=== PATIENT | female | born 1945 | race Caucasian/White ===

== ENCOUNTER 2023-10-06 19:23 | Inpatient (IN) | payer MEDICARE, SELFPAY ==
[2023-10-06] VITALS (18 sets, daily range): BP systolic 71–113; BP diastolic 47–72; PULSE 56–118; RESP 6–34; TEMP 35.4–36.7; O2SAT 93
--- NOTE | 2023-10-06 19:40 | PC.NURSE ---
see triage note for detail, scratches noted to the back of both lower extremities, dressing applied per prison, removed upon arrival, no gross drainage note skin pink around wounds below wounds skin is purple in color with decreased cap refill,
--- NOTE | 2023-10-06 19:49 | ED.GENADULT ---
HPI - General Adult <Lilly Jaeger MD - Last Filed: 10/10/23 11:11> General Chief complaint: Wound/Laceration Stated complaint: wounds on legs Time Seen by Provider: 10/06/23 19:26 History of Present Illness HPI narrative: 78-year-old woman brought to the emergency department from [facility] with altered mental status and concern for lower extremity cellulitis. Discharge summary from [facility] with hospitalization September 14 through September 27 is available and reviewed. 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 Patient apparently had been doing well with continued improvement for a couple of days and over the last 2-3 days has reportedly been declining. On arrival in the emergency department patient is not oriented to person time and place. She is moaning in pain but not able to tell us where she is hurting. Patient was treated with antibiotics in the hospital, completed a 5 day course of doxycycline post discharge and is no longer on antibiotics. Related Data Home Medications Medication Instructions Recorded Confirmed Multivitamin Women 50 Plus 1 tab DAILY 10/06/23 10/06/23 Ocuvite Adult 50 Plus 1 tab DAILY 10/06/23 10/06/23 ascorbic acid (vitamin C) 1,000 mg DAILY 10/06/23 10/06/23 cetirizine 10 mg DAILY 10/06/23 10/06/23 magnesium oxide 400 mg DAILY 10/06/23 10/06/23 melatonin 10 mg BEDTIME 10/06/23 10/06/23 metoprolol succinate 25 mg mg PO DAILY 10/06/23 tablet,extended release 24 hr rivaroxaban 15 mg BEDTIME 10/06/23 10/06/23 thiamine mononitrate (vit B1) 100 mg DAILY 10/06/23 10/06/23 valacyclovir 500 mg tablet 500 mg PO BID 10/06/23 10/06/23 Allergies Allergy/AdvReac Type Severity Reaction Status Date / Time No Known Drug Allergies Allergy Verified 10/06/23 20:20 Review of Systems <Lilly Jaeger MD - Last Filed: 10/10/23 11:11> Review of Systems ROS Unobtainable: Unobtainable due to mental status/LOC Patient History <Lilly Jaeger MD - Last Filed: 10/10/23 11:11> Medical History History of alcohol use disorder Atrial fibrillation Congestive heart failure Social History household members: spouse Smoking Status: Never smoker Exam <Lilly Jaeger MD - Last Filed: 10/10/23 11:11> Initial Vital Signs Initial Vital Signs: Vital Signs Pulse Rate 56 L 10/06/23 19:26 General: Chronically ill-appearing with acute exacerbation, not oriented to person time and place, cachectic, dehydrated HEENT: Dry mucous membranes, normal sclera with reactive pupils, tongue with aphthous ulcers Neck: No JVD, no cervical adenopathy Respiratory: Lungs with mild rhonchi mid axillary lines bilaterally, no significant wheezing, she is moving air through all lung mak Cardiac: Tachycardic, irregular, 3/6 systolic murmur Abdomen: Soft, no pain behaviors with palpation, Skin: Very thin, multiple bruises in various stages of healing Neurologic: She is able to move all extremities but is not oriented to person time and place Extremities: Feet and fingers are extremely poorly perfused. Feet are purple with no palpable pulses. Nail beds of the fingertips are purple and unable to get saturations from fingertips. She is mild edema, the lower extremity wounds are appropriately dressed, very shallow with no evidence of worsening cellulitis or significant discharge Psych: Completely unoriented <Judit Ramesh DO - Last Filed: 10/07/23 11:28> Initial Vital Signs Initial Vital Signs: Vital Signs Pulse Rate 56 L 10/06/23 19:26 Procedures <Lilly Jaeger MD - Last Filed: 10/10/23 11:11> Central Line Placement Right IJ: Time of procedure: 00:46 Patient Placed on Monitor/Pulse Ox: Yes MD Prep: gown and gloves Central Line Prep: Chlorhexidine scrub Local Anesthetic: lidocaine 1% Amount of anesthesia used (mL): 3 Ultrasound Used for Placement: Yes Central Line Lumen Inserted: triple Post Procedure: sutured in place, good blood return, all ports aspirated, flushed, capped, sterile dressing applied and line stabilization device Post Procedure X-Ray: tip of catheter in good position and no pneumothorax seen Patient Tolerated Procedure: Well Complications: none Course <Lilly Jaeger MD - Last Filed: 10/10/23 11:11> Orders Ordered: Discontinued Medications Acetaminophen (Acetaminophen 325 Mg Tablet) 650 mg PO Q6H PRN PRN Reason: Fever/Mild Pain (1-3) Haloperidol (Haloperidol 5 Mg/Ml Vial) 2 mg IV Q1HR PRN PRN Reason: Agitation Hydromorphone HCl (Hydromorphone 0.5 Mg Inj) 0.5 mg IV Q15MIN PRN PRN Reason: Pain, Last Admin: 10/07/23 00:01 Dose: 0.5 mg Documented By: Admin: 10/06/23 20:41 Dose: 0.5 mg Documented By: JACQUELINE Hydromorphone HCl (Hydromorphone 0.5 Mg Inj) 0.5 mg IV Q2H PRN PRN Reason: Pain, Severe (7-10) Sodium Chloride (Normal Saline 0.9%) 1,000 mls @ 1,000 mls/hr IV BOLUS ONE Stop: 10/06/23 20:59 Last Infusion: 10/06/23 22:10 Dose: Infused Documented By: Admin: 10/06/23 20:41 Dose: 1,000 mls/hr Documented By: JACQUELINE Cefepime HCl 2 gm/ Sodium (Chloride) 100 mls @ 200 mls/hr IV NOW ONE Stop: 10/06/23 21:49 Last Infusion: 10/06/23 22:58 Dose: Infused Documented By: Admin: 10/06/23 22:09 Dose: 200 mls/hr Documented By: JACQUELINE Sodium Chloride (Normal Saline 0.9%) 1,000 mls @ 150 mls/hr IV CONT IRCKI Last Infusion: 10/07/23 01:34 Dose: Infused Documented By: Admin: 10/06/23 23:27 Dose: 150 mls/hr Documented By: JACQUELINE Sodium Chloride (Normal Saline 0.9%) 1,000 mls @ 1,000 mls/hr IV BOLUS ONE Stop: 10/06/23 22:47 Last Infusion: 10/06/23 23:27 Dose: Infused Documented By: Admin: 10/06/23 22:10 Dose: 1,000 mls/hr Documented By: JACQUELINE Vancomycin HCl (Vancomycin) 1,000 mg in 200 mls @ 200 mls/hr IV NOW ONE Stop: 10/06/23 22:59 Last Infusion: 10/07/23 00:15 Dose: Infused Documented By: Admin: 10/06/23 22:55 Dose: 200 mls/hr Documented By: JACQUELINE Acetaminophen (Ofirmev) 1,000 mg in 100 mls @ 400 mls/hr IV NOW ONE Stop: 10/06/23 23:21 Last Infusion: 10/06/23 23:57 Dose: Infused Documented By: Admin: 10/06/23 23:30 Dose: 400 mls/hr Documented By: JACQUELINE NOREPINEPHRINE BITARTRATE/D5W (Levophed) 4 mg in 250 mls @ 20.412 mls/hr IV TITRATE [facility]; Protocol Last Titration: 10/07/23 01:33 Dose: Infused Documented By: Titration: 10/07/23 00:17 Dose: 0.2 mcg/kg/min, 40.823 mls/hr Documented By: Admin: 10/06/23 23:42 Dose: 0.1 mcg/kg/min, 20.412 mls/hr Documented By: JACQUELINE Lorazepam (Lorazepam 2 Mg/Ml Inj) 1 mg IV Q1HR PRN PRN Reason: Agitation/Anxiety Last Admin: 10/07/23 13:38 Dose: 1 mg Documented By: SVETA Morphine Sulfate (Morphine 2 Mg/Ml Inj) 1 mg IV Q2HR PRN PRN Reason: Pain, Moderate (4-6) Last Admin: 10/07/23 08:11 Dose: 1 mg Documented By: MPO Morphine Sulfate (Morphine 2 Mg/Ml Inj) 2 mg IV Q30MIN PRN PRN Reason: Pain/Dyspnea Morphine Sulfate (Morphine 10 Mg/0.5 Ml Oral Syringe) 10 mg SL Q1H PRN PRN Reason: Pain, Mild (1-3) Last Admin: 10/07/23 11:56 Dose: 10 mg Documented By: BT Naloxone HCl (Naloxone 0.4 Mg/Ml Vial) 0.2 mg IV Q2MIN PRN PRN Reason: Opiate Reversal Ondansetron HCl (Ondansetron 4 Mg/2 Ml Inj) 4 mg IV Q4HR PRN PRN Reason: Nausea And Vomiting Scopolamine (Scopolamine 1 Patch) 1 patch TOP Q72H PRN PRN Reason: Secretions Last Admin: 10/07/23 11:23 Dose: 1 patch Documented By: DIMITRI Vancomycin HCl (Vancomycin Per Pharmacy) 1 request MISC NOW ONE Stop: 10/06/23 21:49 Last Admin: 10/06/23 22:38 Dose: Not Given Documented By: JACQUELINE Vital Signs Vital signs: Vital Signs - 8 hr 10/07/23 03:30 10/07/23 03:30 10/07/23 03:40 Temperature 98.1 F Pulse Rate 97 H Respiratory Rate 7 L Blood Pressure 72/49 L 74/50 L Oxygen Delivery Method Oxygen Flow Rate 10/07/23 03:40 10/07/23 03:50 10/07/23 03:50 Temperature 97.9 F 97.9 F Pulse Rate 89 92 H Respiratory Rate 7 L 6 L Blood Pressure 70/48 L Oxygen Delivery Method Oxygen Flow Rate 10/07/23 04:00 10/07/23 04:00 10/07/23 04:10 Temperature 97.9 F 97.9 F Pulse Rate 92 H 84 Respiratory Rate 8 L 6 L Blood Pressure 72/52 L Oxygen Delivery Method Oxygen Flow Rate 10/07/23 04:10 10/07/23 04:20 10/07/23 04:20 Temperature 97.9 F Pulse Rate 95 H Respiratory Rate 6 L Blood Pressure 72/50 L 70/39 L Oxygen Delivery Method Oxygen Flow Rate 10/07/23 04:30 10/07/23 04:30 10/07/23 04:40 Temperature 97.7 F Pulse Rate 90 Respiratory Rate 8 L Blood Pressure 73/51 L 71/53 L Oxygen Delivery Method Oxygen Flow Rate 10/07/23 04:40 10/07/23 04:50 10/07/23 04:50 Temperature 97.7 F 97.7 F Pulse Rate 90 91 H Respiratory Rate 7 L 5 L Blood Pressure 66/51 L Oxygen Delivery Method Oxygen Flow Rate 10/07/23 05:00 10/07/23 05:12 10/07/23 05:12 Temperature 97.7 F 97.7 F Pulse Rate 96 H 95 H Respiratory Rate 6 L 7 L Blood Pressure 75/50 L Oxygen Delivery Method High Flow Nasal Cannula Oxygen Flow Rate 45 10/07/23 05:30 10/07/23 05:30 10/07/23 05:55 Temperature 97.5 F L 97.5 F L Pulse Rate 92 H 99 H Respiratory Rate 8 L 5 L Blood Pressure 73/41 L Oxygen Delivery Method Oxygen Flow Rate 10/07/23 05:55 10/07/23 06:00 10/07/23 06:00 Temperature 97.5 F L Pulse Rate 97 H Respiratory Rate 7 L Blood Pressure 71/49 L 69/52 L Oxygen Delivery Method Oxygen Flow Rate <Judit Ramesh DO - Last Filed: 10/07/23 11:28> Orders Ordered: Discontinued Medications Acetaminophen (Acetaminophen 325 Mg Tablet) 650 mg PO Q6H PRN PRN Reason: Fever/Mild Pain (1-3) Haloperidol (Haloperidol 5 Mg/Ml Vial) 2 mg IV Q1HR PRN PRN Reason: Agitation Hydromorphone HCl (Hydromorphone 0.5 Mg Inj) 0.5 mg IV Q15MIN PRN PRN Reason: Pain, Last Admin: 10/07/23 00:01 Dose: 0.5 mg Documented By: Admin: 10/06/23 20:41 Dose: 0.5 mg Documented By: JACQUELINE Hydromorphone HCl (Hydromorphone 0.5 Mg Inj) 0.5 mg IV Q2H PRN PRN Reason: Pain, Severe (7-10) Sodium Chloride (Normal Saline 0.9%) 1,000 mls @ 1,000 mls/hr IV BOLUS ONE Stop: 10/06/23 20:59 Last Infusion: 10/06/23 22:10 Dose: Infused Documented By: Admin: 10/06/23 20:41 Dose: 1,000 mls/hr Documented By: JACQUELINE Cefepime HCl 2 gm/ Sodium (Chloride) 100 mls @ 200 mls/hr IV NOW ONE Stop: 10/06/23 21:49 Last Infusion: 10/06/23 22:58 Dose: Infused Documented By: Admin: 10/06/23 22:09 Dose: 200 mls/hr Documented By: JACQUELINE Sodium Chloride (Normal Saline 0.9%) 1,000 mls @ 150 mls/hr IV CONT RICKI Last Infusion: 10/07/23 01:34 Dose: Infused Documented By: Admin: 10/06/23 23:27 Dose: 150 mls/hr Documented By: JACQUELINE Sodium Chloride (Normal Saline 0.9%) 1,000 mls @ 1,000 mls/hr IV BOLUS ONE Stop: 10/06/23 22:47 Last Infusion: 10/06/23 23:27 Dose: Infused Documented By: Admin: 10/06/23 22:10 Dose: 1,000 mls/hr Documented By: JACQUELINE Vancomycin HCl (Vancomycin) 1,000 mg in 200 mls @ 200 mls/hr IV NOW ONE Stop: 10/06/23 22:59 Last Infusion: 10/07/23 00:15 Dose: Infused Documented By: Admin: 10/06/23 22:55 Dose: 200 mls/hr Documented By: JACQUELINE Acetaminophen (Ofirmev) 1,000 mg in 100 mls @ 400 mls/hr IV NOW ONE Stop: 10/06/23 23:21 Last Infusion: 10/06/23 23:57 Dose: Infused Documented By: Admin: 10/06/23 23:30 Dose: 400 mls/hr Documented By: JACQUELINE NOREPINEPHRINE BITARTRATE/D5W (Levophed) 4 mg in 250 mls @ 20.412 mls/hr IV TITRATE [facility]; Protocol Last Titration: 10/07/23 01:33 Dose: Infused Documented By: Titration: 10/07/23 00:17 Dose: 0.2 mcg/kg/min, 40.823 mls/hr Documented By: Admin: 10/06/23 23:42 Dose: 0.1 mcg/kg/min, 20.412 mls/hr Documented By: JACQUELINE Lorazepam (Lorazepam 2 Mg/Ml Inj) 1 mg IV Q1HR PRN PRN Reason: Agitation/Anxiety Last Admin: 10/07/23 13:38 Dose: 1 mg Documented By: BT Morphine Sulfate (Morphine 2 Mg/Ml Inj) 1 mg IV Q2HR PRN PRN Reason: Pain, Moderate (4-6) Last Admin: 10/07/23 08:11 Dose: 1 mg Documented By: MPO Morphine Sulfate (Morphine 2 Mg/Ml Inj) 2 mg IV Q30MIN PRN PRN Reason: Pain/Dyspnea Morphine Sulfate (Morphine 10 Mg/0.5 Ml Oral Syringe) 10 mg SL Q1H PRN PRN Reason: Pain, Mild (1-3) Last Admin: 10/07/23 11:56 Dose: 10 mg Documented By: SVETA Naloxone HCl (Naloxone 0.4 Mg/Ml Vial) 0.2 mg IV Q2MIN PRN PRN Reason: Opiate Reversal Ondansetron HCl (Ondansetron 4 Mg/2 Ml Inj) 4 mg IV Q4HR PRN PRN Reason: Nausea And Vomiting Scopolamine (Scopolamine 1 Patch) 1 patch TOP Q72H PRN PRN Reason: Secretions Last Admin: 10/07/23 11:23 Dose: 1 patch Documented By: DIMITRI Vancomycin HCl (Vancomycin Per Pharmacy) 1 request MISC NOW ONE Stop: 10/06/23 21:49 Last Admin: 10/06/23 22:38 Dose: Not Given Documented By: JACQUELINE Vital Signs Vital signs: Vital Signs - 8 hr 10/07/23 03:30 10/07/23 03:30 10/07/23 03:40 Temperature 98.1 F Pulse Rate 97 H Respiratory Rate 7 L Blood Pressure 72/49 L 74/50 L Oxygen Delivery Method Oxygen Flow Rate 10/07/23 03:40 10/07/23 03:50 10/07/23 03:50 Temperature 97.9 F 97.9 F Pulse Rate 89 92 H Respiratory Rate 7 L 6 L Blood Pressure 70/48 L Oxygen Delivery Method Oxygen Flow Rate 10/07/23 04:00 10/07/23 04:00 10/07/23 04:10 Temperature 97.9 F 97.9 F Pulse Rate 92 H 84 Respiratory Rate 8 L 6 L Blood Pressure 72/52 L Oxygen Delivery Method Oxygen Flow Rate 10/07/23 04:10 10/07/23 04:20 10/07/23 04:20 Temperature 97.9 F Pulse Rate 95 H Respiratory Rate 6 L Blood Pressure 72/50 L 70/39 L Oxygen Delivery Method Oxygen Flow Rate 10/07/23 04:30 10/07/23 04:30 10/07/23 04:40 Temperature 97.7 F Pulse Rate 90 Respiratory Rate 8 L Blood Pressure 73/51 L 71/53 L Oxygen Delivery Method Oxygen Flow Rate 10/07/23 04:40 10/07/23 04:50 10/07/23 04:50 Temperature 97.7 F 97.7 F Pulse Rate 90 91 H Respiratory Rate 7 L 5 L Blood Pressure 66/51 L Oxygen Delivery Method Oxygen Flow Rate 10/07/23 05:00 10/07/23 05:12 10/07/23 05:12 Temperature 97.7 F 97.7 F Pulse Rate 96 H 95 H Respiratory Rate 6 L 7 L Blood Pressure 75/50 L Oxygen Delivery Method High Flow Nasal Cannula Oxygen Flow Rate 45 10/07/23 05:30 10/07/23 05:30 10/07/23 05:55 Temperature 97.5 F L 97.5 F L Pulse Rate 92 H 99 H Respiratory Rate 8 L 5 L Blood Pressure 73/41 L Oxygen Delivery Method Oxygen Flow Rate 10/07/23 05:55 10/07/23 06:00 10/07/23 06:00 Temperature 97.5 F L Pulse Rate 97 H Respiratory Rate 7 L Blood Pressure 71/49 L 69/52 L Oxygen Delivery Method Oxygen Flow Rate Medical Decision Making <Lilly Jaeger MD - Last Filed: 10/10/23 11:11> Lab Data 10/06/23 20:37 10/06/23 20:37 Labs: Lab Results 10/06/23 10/06/23 10/06/23 Range/Units 20:37 21:00 21:35 WBC 11.1 H (4.5-11.0) X10^3/uL RBC 4.17 (4.0-5.2) X10^6/uL Hgb 14.6 (12.0-16.0) g/dL Hct 45.9 (36-46) % MCV 110.0 H (80-100) fL MCH 35.1 H (26-34) PG MCHC 31.9 (30-36) % RDW 18.7 H (11.6-14.8) % Plt Count 209 (150-400) X10^3/uL Neut % (Auto) 87.4 H (50-75) % Lymph % (Auto) 3.7 L (25-40) % Garrett % (Auto) 8.6 (3-14) % Eos % (Auto) 0.1 L (2-4) % Baso % (Auto) 0.2 (0-2) % Neut # (Auto) 9700 H (7739-2795) /uL Lymph # (Auto) 400 L (8304-9959) /uL Garrett # (Auto) 1000 H (0-900) /uL Eos # (Auto) 0 (0-450) /uL Baso # (Auto) 0 (0-100) /uL RBC Morphology See below Anisocytosis 1+ H Macrocytosis 2+ H Target Cells 1+ H Arie Cells 2+ H Acanthocytes (Spur) 1+ H PT 76.6 H (9.4-12.5) SECONDS INR 6.5 H* (0.9-1.3) APTT 51 H (25.1-36.5) SECONDS ABG Sample Site ABG pH (7.35-7.45) ABG pCO2 (35-45) mmHg ABG pO2 (80-100) mmHg ABG HCO3 (23-27) mmol/L ABG Total CO2 (23-27) mmol/L ABG O2 Saturation (95-100) % ABG Base Excess (-2-3) mmol/L FiO2 Sodium 135 L (137-145) mmol/L Potassium 5.3 H (3.4-5.1) mmol/L Chloride 103 (98-107) mmol/L Carbon Dioxide 14 L (22-32) mmol/L BUN 100 H (7-17) mg/dL Creatinine 2.50 H (0.52-1.04) mg/dL Estimated GFR 19 L (>60) mL/min BUN/Creatinine Ratio 40.0 H (6-22) Glucose 122 H (80-110) mg/dL Lactate 2.0 (0.7-2.1) mmol/L Calcium 9.1 (8.4-10.2) mg/dL Magnesium 2.8 H (1.6-2.3) mg/dL Total Bilirubin 3.8 H (0.2-1.3) mg/dL AST 105 H (14-36) IU/L ALT 90 H (<35) IU/L Alkaline Phosphatase 231 H (38-126) U/L Ammonia 11 (9-30) umol/L Troponin I 0.029 (0.01-0.034) ng/mL NT-Pro-B Natriuret Pep 01677 H (<450) pg/mL Total Protein 7.2 (6.3-8.2) g/dL Albumin 3.6 (3.5-5.0) g/dL Globulin 3.6 (1.7-4.1) g/dL Albumin/Globulin Ratio 1.0 (1.0-2.8) Lipase 384 H (23-300) U/L Procalcitonin 1.42 H (<0.5) ng/mL TSH 3.63 (0.47-4.68) uIU/mL Urine Color Yellow Urine Appearance Clear Urine pH 5.5 (4.5-8.0) Ur Specific Slaughters 1.025 (1.000-1.035) Urine Protein 2+ H (Negative) Urine Glucose (UA) Negative (Negative) g/dL Urine Ketones Negative (NEGATIVE) Urine Occult Blood Negative (Negative) Urine Nitrate Negative (Negative) Urine Bilirubin 1+ H (NEGATIVE) Ur Bilirubin Confirm Negative (Negative) Urine Urobilinogen 0.2 (0.2) E.U./dL Ur Leukocyte Esterase Negative (NEGATIVE) Urine RBC None seen (0-5/HPF) Urine WBC None seen (0-5/HPF) Ur Squamous Epith Cells 1-5 /hpf (0-5/HPF) Amorphous Sediment 1+ Urine Bacteria None seen (None) Urine Mucus 1+ H (Negative) Ur Culture Indicated? Cult not indicated Vol Urine Centrifuged 10ml (spun) Blood Type A Positive Antibody Screen Negative 10/06/23 10/06/23 Range/Units 22:17 23:40 WBC (4.5-11.0) X10^3/uL RBC (4.0-5.2) X10^6/uL Hgb (12.0-16.0) g/dL Hct (36-46) % MCV (80-100) fL MCH (26-34) PG MCHC (30-36) % RDW (11.6-14.8) % Plt Count (150-400) X10^3/uL Neut % (Auto) (50-75) % Lymph % (Auto) (25-40) % Garrett % (Auto) (3-14) % Eos % (Auto) (2-4) % Baso % (Auto) (0-2) % Neut # (Auto) (6688-5268) /uL Lymph # (Auto) (9299-8657) /uL Garrett # (Auto) (0-900) /uL Eos # (Auto) (0-450) /uL Baso # (Auto) (0-100) /uL RBC Morphology Anisocytosis Macrocytosis Target Cells [place] Cells Acanthocytes (Spur) PT (9.4-12.5) SECONDS INR (0.9-1.3) APTT (25.1-36.5) SECONDS ABG Sample Site Left radial ABG pH 7.32 L (7.35-7.45) ABG pCO2 35.1 (35-45) mmHg ABG pO2 79 L (80-100) mmHg ABG HCO3 18 L (23-27) mmol/L ABG Total CO2 19 L (23-27) mmol/L ABG O2 Saturation 95 (95-100) % ABG Base Excess -8.0 L (-2-3) mmol/L FiO2 20 Sodium (137-145) mmol/L Potassium (3.4-5.1) mmol/L Chloride (98-107) mmol/L Carbon Dioxide (22-32) mmol/L BUN (7-17) mg/dL Creatinine (0.52-1.04) mg/dL Estimated GFR (>60) mL/min BUN/Creatinine Ratio (6-22) Glucose (80-110) mg/dL Lactate 2.9 H (0.7-2.1) mmol/L Calcium (8.4-10.2) mg/dL Magnesium (1.6-2.3) mg/dL Total Bilirubin (0.2-1.3) mg/dL AST (14-36) IU/L ALT (<35) IU/L Alkaline Phosphatase (38-126) U/L Ammonia (9-30) umol/L Troponin I (0.01-0.034) ng/mL NT-Pro-B Natriuret Pep (<450) pg/mL Total Protein (6.3-8.2) g/dL Albumin (3.5-5.0) g/dL Globulin (1.7-4.1) g/dL Albumin/Globulin Ratio (1.0-2.8) Lipase (23-300) U/L Procalcitonin (<0.5) ng/mL TSH (0.47-4.68) uIU/mL Urine Color Urine Appearance Urine pH (4.5-8.0) Ur Specific Slaughters (1.000-1.035) Urine Protein (Negative) Urine Glucose (UA) (Negative) g/dL Urine Ketones (NEGATIVE) Urine Occult Blood (Negative) Urine Nitrate (Negative) Urine Bilirubin (NEGATIVE) Ur Bilirubin Confirm (Negative) Urine Urobilinogen (0.2) E.U./dL Ur Leukocyte Esterase (NEGATIVE) Urine RBC (0-5/HPF) Urine WBC (0-5/HPF) Ur Squamous Epith Cells (0-5/HPF) Amorphous Sediment Urine Bacteria (None) Urine Mucus (Negative) Ur Culture Indicated? Vol Urine Centrifuged Blood Type Antibody Screen MDM Narrative Medical decision making narrative: CC: Altered mental status, concern for recurrent infection Complicating co-morbidities: Recent extensive hospitalization with ICU stay, please see HPI for summary Data collected from: Discharge summary from [facility] Medical records reviewed: Discharge summary from [facility] reviewed, summarized in HPI. MAR from [facility] reviewed POLST form indicates DNR with limited intervention Differential considered: Sepsis, acute coronary syndrome, stroke, kidney failure, Exam documented above, pertinent findings include: Patient appears acutely ill, exceptionally poorly perfused to the point I am concerned about vascular occlusion to the lower extremities, minor rhonchi, atrial fibrillation with heart murmur appreciated, abdomen is not tender and does not elicit pain behaviors, very superficial wounds to the lower extremities do not appear to be infected and no evidence of cellulitis in the lower extremities Lab Test results independently reviewed as above. Pertinent findings: CBC shows mild leukocytosis with white count of 11.1. Left shift at 87.4%. No evidence of anemia at 14.6 and 45.9 platelet count is Patient is currently on Xarelto. Significantly elevated PT at 76.6 which is the equivalent of an INR at 6.5, PTT is 51 ABG shows a pH of 7 point 316, CO2 of 35.1, O2 of 79 which is 95% saturated on room air, bicarb is 17.9 Chemistries have significant abnormalities. Mild hyperkalemia at 5.3 Creatinine is elevated at 2.5, was 1.8 at time of discharge Slightly elevated magnesium Elevated AST at 105, discharge was 57 ALT 90 and at discharge had been 57 and alk-phos elevated at 231 and at discharge had been 242 Bilirubin elevated at 3.8 and at discharge had been 3.3 Initial lactic acid is 2.0. Once she has warmed, better perfusion with blood circulating actually to toes lactic acid is increasing to 2.9 Independently reviewed EKG: Atrial fibrillation at a rate of 97 without acute ischemic changes Imaging studies independently reviewed: Chest x-ray shows cardiomegaly, small left pleural effusion with left pulmonary opacities concerning for infection Duplex studies of the lower extremities do show blood flow to the extremities with moderate atherosclerotic plaque throughout with decreased vessel caliber Head CT does not show any intracranial pathology or acute bleeding Consultations: 1:30 Care is reviewed with the hospitalist, Dr. Arndt. Given her significant decline, essentially agonal breathing, poor perfusion at this point I think is imminent. Together we decided to have her remain in the emergency department rather than transfer her to the intensive care unit. Presumed that she will within the next minutes to hours and we will make sure that she is not hurting and dies with dignity. Treatments: Central line placement for access, blood samples and anticipation of needing vasopressors Fluids, cefepime and vancomycin with concerns for sepsis and possible pneumonia, Temperature sensing Licea catheter is in place with minimal urine output Kimberli Hugger placed with significant improvement to peripheral perfusion and associated increase in lactic acid Re-evaluations: 1:00 a.m. Patient continues to groan in pain that is not localizing. Respiratory rate currently a with sats in the mid 90s on room air, norepinephrine is at 0.2 milligrams/kilos per minute with maps at 66. She remains significantly altered 110am patient is clearly declining. Respiratory status is declining, she is so poorly perfused we are unable to get effective saturations. Perfusion centrally is now significantly affected as well as lower extremities which had initially warmed up, now, again, cool and poorly perfused. We will try high-flow oxygen as she is not alert enough to tolerate BiPAP. Again POLST form is reviewed and indicates DNR and DNI with limited measures. I believe we are the limits of the limited measures. 0110 phone call to the ?person to notify?, Mandy sanchez. Message is left concerning severity of illness and concern for imminent demise 330am RR is less than 5/min and essentially agonal. Pt appears comfortable 545am High flow oxygen is discontinued. There is no evidence of air hunger or discomfort. Continued agonal and ineffective breathing 550 Found additional contact information and was able to speak with her . Wayne Navcielomakayla [phone] [place] on [place] He is aware that she may prior to his arrival. Care is reviewed with him and questions are answered. Discussion: 78-year-old woman with altered mental status presumed pneumonia causing sepsis with septic shock with multiple organ system failure similar to presentation that led to extended hospitalization at [facility] on September 15. She is not oriented to person time and place, seems to be moaning in pain with no localized symptoms. She is clinically intravascularly dehydrated but also showing signs of congestive heart failure with lower extremity edema and elevated BNP. Broad-spectrum antibiotics have been initiated, she is currently on Levophed respiratory status as well as respiratory rate is declining. Will need ICU admission. There is no evidence of stroke, intracranial hemorrhage, severe blood loss with notably elevated PT and PTT likely a combination of liver failure and her Xarelto. Severe Sepsis Criteria [x ] bacterial source of infection suspected and documented [ ] 2 SIRS Criteria met [ x ] HR >90 [ ] RR >20 [ ] fever or hypothermia [ ] leukocytosis/leukopenia/bandemia [ ] Evidence of at least 1 organ system dysfunction [ x ] Lactate > 2 on repeat at 23:40 [ x ] BP < 90 or MAP <65, >40mm decrease from normal baseline [x ] Creat > 2.0 [ x ] T. Bili > 2.0 [ ] platelet count < 100k [ x ] altered mental status [ ] mechanical ventilation [ x ] provider documentation of severe sepsis Severe Sepsis Determination. the patient has been screened and [ x] DOES meet criteria for severe sepsis [ ] DOES NOT meet criteria for severe sepsis Goal directed treatment Within 3 hours [ x ] blood cx drawn prior to abx [ x ] broad spectrum abx started [x ] lactic acid level checked [ ] lactic redrawn within 6 hours if >2.0 Septic Shock Criteria [ ] lactic > 4 at any time [ x ] SBP ,90 or MAP , 65 [ x ] documentation of septic shock Time Septic Shock diagnosed: [ 23:42 ] Septic Shock Determination. the patient has been screened and [ x ] DOES meet criteria for septic shock [ ] DOES NOT meet criteria for septic shock Goal directed therapy within 3 hours of septic shock or initial hypotension [ x] 30ml/kg fluid [ x ] ABW used [ ] IBW (33.6) used due to BMI > 30 [ ] patient or advocate declining fluid administration after shared decision making conversation Clinical reason for NOT initiating fluid bolus: Within 6 hours (if continued hypotension after fluids or initial lactate >4) [ ] repeat volume status and tissue perfusion assessment documented after fluid bolus was completed at [Date/Time] Must include vital signs, cardiopulmonary exam, capillary refill, peripheral pulse evaluation, skin exam [x ] Initiate vasopressor therapy if persistent hypotension after adequate fluid bolus <Judit Ramesh, DO - Last Filed: 10/07/23 11:28> Lab Data Labs: Lab Results 10/06/23 10/06/23 10/06/23 Range/Units 20:37 21:00 21:35 WBC 11.1 H (4.5-11.0) X10^3/uL RBC 4.17 (4.0-5.2) X10^6/uL Hgb 14.6 (12.0-16.0) g/dL Hct 45.9 (36-46) % MCV 110.0 H (80-100) fL MCH 35.1 H (26-34) PG MCHC 31.9 (30-36) % RDW 18.7 H (11.6-14.8) % Plt Count 209 (150-400) X10^3/uL Neut % (Auto) 87.4 H (50-75) % Lymph % (Auto) 3.7 L (25-40) % Garrett % (Auto) 8.6 (3-14) % Eos % (Auto) 0.1 L (2-4) % Baso % (Auto) 0.2 (0-2) % Neut # (Auto) 9700 H (1164-9955) /uL Lymph # (Auto) 400 L (8136-9632) /uL Garrett # (Auto) 1000 H (0-900) /uL Eos # (Auto) 0 (0-450) /uL Baso # (Auto) 0 (0-100) /uL RBC Morphology See below Anisocytosis 1+ H Macrocytosis 2+ H Target Cells 1+ H Arie Cells 2+ H Acanthocytes (Spur) 1+ H PT 76.6 H (9.4-12.5) SECONDS INR 6.5 H* (0.9-1.3) APTT 51 H (25.1-36.5) SECONDS ABG Sample Site ABG pH (7.35-7.45) ABG pCO2 (35-45) mmHg ABG pO2 (80-100) mmHg ABG HCO3 (23-27) mmol/L ABG Total CO2 (23-27) mmol/L ABG O2 Saturation (95-100) % ABG Base Excess (-2-3) mmol/L FiO2 Sodium 135 L (137-145) mmol/L Potassium 5.3 H (3.4-5.1) mmol/L Chloride 103 (98-107) mmol/L Carbon Dioxide 14 L (22-32) mmol/L BUN 100 H (7-17) mg/dL Creatinine 2.50 H (0.52-1.04) mg/dL Estimated GFR 19 L (>60) mL/min BUN/Creatinine Ratio 40.0 H (6-22) Glucose 122 H (80-110) mg/dL Lactate 2.0 (0.7-2.1) mmol/L Calcium 9.1 (8.4-10.2) mg/dL Magnesium 2.8 H (1.6-2.3) mg/dL Total Bilirubin 3.8 H (0.2-1.3) mg/dL AST 105 H (14-36) IU/L ALT 90 H (<35) IU/L Alkaline Phosphatase 231 H (38-126) U/L Ammonia 11 (9-30) umol/L Troponin I 0.029 (0.01-0.034) ng/mL NT-Pro-B Natriuret Pep 93053 H (<450) pg/mL Total Protein 7.2 (6.3-8.2) g/dL Albumin 3.6 (3.5-5.0) g/dL Globulin 3.6 (1.7-4.1) g/dL Albumin/Globulin Ratio 1.0 (1.0-2.8) Lipase 384 H (23-300) U/L Procalcitonin 1.42 H (<0.5) ng/mL TSH 3.63 (0.47-4.68) uIU/mL Urine Color Yellow Urine Appearance Clear Urine pH 5.5 (4.5-8.0) Ur Specific Slaughters 1.025 (1.000-1.035) Urine Protein 2+ H (Negative) Urine Glucose (UA) Negative (Negative) g/dL Urine Ketones Negative (NEGATIVE) Urine Occult Blood Negative (Negative) Urine Nitrate Negative (Negative) Urine Bilirubin 1+ H (NEGATIVE) Ur Bilirubin Confirm Negative (Negative) Urine Urobilinogen 0.2 (0.2) E.U./dL Ur Leukocyte Esterase Negative (NEGATIVE) Urine RBC None seen (0-5/HPF) Urine WBC None seen (0-5/HPF) Ur Squamous Epith Cells 1-5 /hpf (0-5/HPF) Amorphous Sediment 1+ Urine Bacteria None seen (None) Urine Mucus 1+ H (Negative) Ur Culture Indicated? Cult not indicated Vol Urine Centrifuged 10ml (spun) Blood Type A Positive Antibody Screen Negative 10/06/23 10/06/23 Range/Units 22:17 23:40 WBC (4.5-11.0) X10^3/uL RBC (4.0-5.2) X10^6/uL Hgb (12.0-16.0) g/dL Hct (36-46) % MCV (80-100) fL MCH (26-34) PG MCHC (30-36) % RDW (11.6-14.8) % Plt Count (150-400) X10^3/uL Neut % (Auto) (50-75) % Lymph % (Auto) (25-40) % Garrett % (Auto) (3-14) % Eos % (Auto) (2-4) % Baso % (Auto) (0-2) % Neut # (Auto) (9586-2530) /uL Lymph # (Auto) (3277-9562) /uL Garrett # (Auto) (0-900) /uL Eos # (Auto) (0-450) /uL Baso # (Auto) (0-100) /uL RBC Morphology Anisocytosis Macrocytosis Target Cells [place] Cells Acanthocytes (Spur) PT (9.4-12.5) SECONDS INR (0.9-1.3) APTT (25.1-36.5) SECONDS ABG Sample Site Left radial ABG pH 7.32 L (7.35-7.45) ABG pCO2 35.1 (35-45) mmHg ABG pO2 79 L (80-100) mmHg ABG HCO3 18 L (23-27) mmol/L ABG Total CO2 19 L (23-27) mmol/L ABG O2 Saturation 95 (95-100) % ABG Base Excess -8.0 L (-2-3) mmol/L FiO2 20 Sodium (137-145) mmol/L Potassium (3.4-5.1) mmol/L Chloride (98-107) mmol/L Carbon Dioxide (22-32) mmol/L BUN (7-17) mg/dL Creatinine (0.52-1.04) mg/dL Estimated GFR (>60) mL/min BUN/Creatinine Ratio (6-22) Glucose (80-110) mg/dL Lactate 2.9 H (0.7-2.1) mmol/L Calcium (8.4-10.2) mg/dL Magnesium (1.6-2.3) mg/dL Total Bilirubin (0.2-1.3) mg/dL AST (14-36) IU/L ALT (<35) IU/L Alkaline Phosphatase (38-126) U/L Ammonia (9-30) umol/L Troponin I (0.01-0.034) ng/mL NT-Pro-B Natriuret Pep (<450) pg/mL Total Protein (6.3-8.2) g/dL Albumin (3.5-5.0) g/dL Globulin (1.7-4.1) g/dL Albumin/Globulin Ratio (1.0-2.8) Lipase (23-300) U/L Procalcitonin (<0.5) ng/mL TSH (0.47-4.68) uIU/mL Urine Color Urine Appearance Urine pH (4.5-8.0) Ur Specific Slaughters (1.000-1.035) Urine Protein (Negative) Urine Glucose (UA) (Negative) g/dL Urine Ketones (NEGATIVE) Urine Occult Blood (Negative) Urine Nitrate (Negative) Urine Bilirubin (NEGATIVE) Ur Bilirubin Confirm (Negative) Urine Urobilinogen (0.2) E.U./dL Ur Leukocyte Esterase (NEGATIVE) Urine RBC (0-5/HPF) Urine WBC (0-5/HPF) Ur Squamous Epith Cells (0-5/HPF) Amorphous Sediment Urine Bacteria (None) Urine Mucus (Negative) Ur Culture Indicated? Vol Urine Centrifuged Blood Type Antibody Screen MDM Narrative Medical decision making narrative: CC: Altered mental status, concern for recurrent infection Complicating co-morbidities: Recent extensive hospitalization with ICU stay, please see HPI for summary Data collected from: Discharge summary from [facility] Medical records reviewed: Discharge summary from [facility] reviewed, summarized in HPI. MAR from [facility] reviewed POLST form indicates DNR with limited intervention Differential considered: Sepsis, acute coronary syndrome, stroke, kidney failure, Exam documented above, pertinent findings include: Patient appears acutely ill, exceptionally poorly perfused to the point I am concerned about vascular occlusion to the lower extremities, minor rhonchi, atrial fibrillation with heart murmur appreciated, abdomen is not tender and does not elicit pain behaviors, very superficial wounds to the lower extremities do not appear to be infected and no evidence of cellulitis in the lower extremities Lab Test results independently reviewed as above. Pertinent findings: CBC shows mild leukocytosis with white count of 11.1. Left shift at 87.4%. No evidence of anemia at 14.6 and 45.9 platelet count is Patient is currently on Xarelto. Significantly elevated PT at 76.6 which is the equivalent of an INR at 6.5, PTT is 51 ABG shows a pH of 7 point 316, CO2 of 35.1, O2 of 79 which is 95% saturated on room air, bicarb is 17.9 Chemistries have significant abnormalities. Mild hyperkalemia at 5.3 Creatinine is elevated at 2.5, was 1.8 at time of discharge Slightly elevated magnesium Elevated AST at 105, discharge was 57 ALT 90 and at discharge had been 57 and alk-phos elevated at 231 and at discharge had been 242 Bilirubin elevated at 3.8 and at discharge had been 3.3 Initial lactic acid is 2.0. Once she has warmed, better perfusion with blood circulating actually to toes lactic acid is increasing to 2.9 Independently reviewed EKG: Atrial fibrillation at a rate of 97 without acute ischemic changes Imaging studies independently reviewed: Chest x-ray shows cardiomegaly, small left pleural effusion with left pulmonary opacities concerning for infection Duplex studies of the lower extremities do show blood flow to the extremities with moderate atherosclerotic plaque throughout with decreased vessel caliber Head CT does not show any intracranial pathology or acute bleeding Consultations: 1:30 Care is reviewed with the hospitalist, Dr. Arndt. Given her significant decline, essentially agonal breathing, poor perfusion at this point I think is imminent. Together we decided to have her remain in the emergency department rather than transfer her to the intensive care unit. Presumed that she will within the next minutes to hours and we will make sure that she is not hurting and dies with dignity. Treatments: Central line placement for access, blood samples and anticipation of needing vasopressors Fluids, cefepime and vancomycin with concerns for sepsis and possible pneumonia, Temperature sensing Licea catheter is in place with minimal urine output Kimberli Hugger placed with significant improvement to peripheral perfusion and associated increase in lactic acid Re-evaluations: 1:00 a.m. Patient continues to groan in pain that is not localizing. Respiratory rate currently a with sats in the mid 90s on room air, norepinephrine is at 0.2 milligrams/kilos per minute with maps at 66. She remains significantly altered 110am patient is clearly declining. Respiratory status is declining, she is so poorly perfused we are unable to get effective saturations. Perfusion centrally is now significantly affected as well as lower extremities which had initially warmed up, now, again, cool and poorly perfused. We will try high-flow oxygen as she is not alert enough to tolerate BiPAP. Again POLST form is reviewed and indicates DNR and DNI with limited measures. I believe we are the limits of the limited measures. 0110 phone call to the ?person to notify?, Mandy sanchez. Message is left concerning severity of illness and concern for imminent demise 330am RR is less than 5/min and essentially agonal. Pt appears comfortable 545am High flow oxygen is discontinued. There is no evidence of air hunger or discomfort. Continued agonal and ineffective breathing 550 Found additional contact information and was able to speak with her . Wayne Elsie [phone] He [place] on [place] He is aware that she may prior to his arrival. Care is reviewed with him and questions are answered. Discussion: 78-year-old woman with altered mental status presumed pneumonia causing sepsis with septic shock with multiple organ system failure similar to presentation that led to extended hospitalization at [facility] on September 15. She is not oriented to person time and place, seems to be moaning in pain with no localized symptoms. She is clinically intravascularly dehydrated but also showing signs of congestive heart failure with lower extremity edema and elevated BNP. Broad-spectrum antibiotics have been initiated, she is currently on Levophed respiratory status as well as respiratory rate is declining. Will need ICU admission. There is no evidence of stroke, intracranial hemorrhage, severe blood loss with notably elevated PT and PTT likely a combination of liver failure and her Xarelto. Severe Sepsis Criteria [x ] bacterial source of infection suspected and documented [ ] 2 SIRS Criteria met [ x ] HR >90 [ ] RR >20 [ ] fever or hypothermia [ ] leukocytosis/leukopenia/bandemia [ ] Evidence of at least 1 organ system dysfunction [ x ] Lactate > 2 on repeat at 23:40 [ x ] BP < 90 or MAP <65, >40mm decrease from normal baseline [x ] Creat > 2.0 [ x ] T. Bili > 2.0 [ ] platelet count < 100k [ x ] altered mental status [ ] mechanical ventilation [ x ] provider documentation of severe sepsis Severe Sepsis Determination. the patient has been screened and [ x] DOES meet criteria for severe sepsis [ ] DOES NOT meet criteria for severe sepsis Goal directed treatment Within 3 hours [ x ] blood cx drawn prior to abx [ x ] broad spectrum abx started [x ] lactic acid level checked [ ] lactic redrawn within 6 hours if >2.0 Septic Shock Criteria [ ] lactic > 4 at any time [ x ] SBP ,90 or MAP , 65 [ x ] documentation of septic shock Time Septic Shock diagnosed: [ 23:42 ] Septic Shock Determination. the patient has been screened and [ x ] DOES meet criteria for septic shock [ ] DOES NOT meet criteria for septic shock Goal directed therapy within 3 hours of septic shock or initial hypotension [ x] 30ml/kg fluid [ x ] ABW used [ ] IBW (33.6) used due to BMI > 30 [ ] patient or advocate declining fluid administration after shared decision making conversation Clinical reason for NOT initiating fluid bolus: Within 6 hours (if continued hypotension after fluids or initial lactate >4) [ ] repeat volume status and tissue perfusion assessment documented after fluid bolus was completed at [Date/Time] Must include vital signs, cardiopulmonary exam, capillary refill, peripheral pulse evaluation, skin exam [x ] Initiate vasopressor therapy if persistent hypotension after adequate fluid bolus Dr. Ramesh- Patient signed out to me by Dr. Jaeger waiting for anticipate . at bedside reports she was at [facility] and then went to rehab. She has DNR paperwork. Concern for multi organ failure. Patient has history of atrial fibrillation on Xarelto mitral valve insufficiency admitted for rectal bleeding and confusion. She was found to have elevated liver enzymes which eventually decreased but now seem to be elevated again she had a liver biopsy get GI was involved it was thought to be multifactorial in the setting of congestive hepatopathy in the setting of heart failure with acute exacerbation she had a small pericardial effusion without evidence of tamponade she was placed on IV antibiotics ultimately discharged to rehab. With at bedside patient started becoming a little more agitated and moaning appears in pain. She is given 1 mg of morphine. Long discussion with agrees to comfort care only. He is multi-system organ failure, concern for sepsis. Dr. Giraldo accepts patient Critical Care Time <Lilly Jaeger MD - Last Filed: 10/10/23 11:11> Critical Care Time Critical Care Time: Yes Total Critical Care Time: 67 Attestation: Critical care time is separate from other billable procedures. There is a high probability of a significant, sudden or life-threatening deterioration that requires my full and direct attention, intervention and personal management. This critical care time includes consultation with family and other consulting doctors, review of records, and interpretation of data from labs, EKGs and imaging as well as managements of severe sepsis with multi system organ failure Discharge Plan Departure Patient Disposition: Admitted As Inpatient Clinical Impression: Septic shock, Acute hyperkalemia, Acute alteration in mental status, Bilateral pneumonia, Acute kidney injury, Elevated liver transaminase level, Total bilirubin, elevated, Acute CHF (congestive heart failure), Excessive anticoagulation, Severe sepsis Respiratory failure Qualifiers: Chronicity: acute Respiratory failure complication: hypoxia and hypercapnia Qualified Code(s): J96.01 - Acute respiratory failure with hypoxia Admit Date/Time: 10/07/23 09:41 Admit Provider: Naren Giraldo
--- NOTE | 2023-10-06 20:00 | DI.US.S_ITS ---
PROCEDURE: US ARTERIAL DUPLEX LE BI INDICATIONS: both feet blue and cold, good inguinal pulses TECHNIQUE: Color and pulse Doppler interrogation was performed of both lower extremity arterial systems, with image documentation. COMPARISON: None. FINDINGS: Right lower extremity: Common femoral artery: 68 cm/sec, with biphasic flow. Deep femoral artery: 73 cm/sec, with biphasic flow. Proximal superficial femoral artery: 100 cm/sec, with biphasic flow. Mid superficial femoral artery: 127 cm/sec, with biphasic flow. Distal superficial femoral artery: 118 cm/sec, with biphasic flow. Popliteal artery: 89 cm/sec, with biphasic/monophasic flow. Posterior tibial artery: 58 cm/sec, with monophasic flow. Anterior tibial artery/dorsalis pedis: 36 cm/sec, with monophasic flow. Baker-scale imaging description: Moderate atherosclerotic plaques throughout with decreased vessel caliber. Left lower extremity: Common femoral artery: 65 cm/sec, with biphasic flow. Deep femoral artery: 91 cm/sec, with triphasic flow. Proximal superficial femoral artery: 108 cm/sec, with biphasic flow. Mid superficial femoral artery: 152 cm/sec, with biphasic flow. Distal superficial femoral artery: 131 cm/sec, with biphasic flow. Popliteal artery: 81 cm/sec, with biphasic/monophasic flow. Posterior tibial artery: 33 cm/sec, with monophasic flow. Anterior tibial artery/dorsalis pedis: 48 cm/sec, with monophasic flow. Baker-scale imaging description: Moderate atherosclerotic plaques with decreased vessel caliber. IMPRESSION: Elevated velocities within the superficial femoral arteries bilaterally, consistent with mild to moderate stenosis. Biphasic and monophasic waveforms throughout. Moderate atherosclerotic plaques throughout with decreased vessel caliber. Dictated by: Enrique Turner M.D. on 10/07/2023 at 0:15 Approved by: Enrique Turner M.D. on 10/07/2023 at 0:17
--- NOTE | 2023-10-06 20:00 | DI.RAD.S_ITS ---
PROCEDURE: XR CHEST 1V INDICATIONS: sepsis TECHNIQUE: One view of the chest was acquired. COMPARISON: None. FINDINGS: Surgical changes and devices: None. Lungs and pleura: Small left pleural effusion. Opacities within left lung. Mediastinum: Mediastinal contours appear normal. Heart size is enlarged. Bones and chest wall: No suspicious bony lesions. Overlying soft tissues appear unremarkable. IMPRESSION: Cardiomegaly. Small left pleural effusion with left pulmonary opacities, concerning for infection. Dictated by: Enrique Turner M.D. on 10/06/2023 at 20:35 Approved by: Enrique Turner M.D. on 10/06/2023 at 20:36
[2023-10-06] MEDS: HYDROMORPHONE 0.5 MG INJ IV (20:41)
[2023-10-06] MEDS: SODIUM CHLORIDE 0.9% 1,000 ML 1000 ML IV ×2 (20:41→22:10)
--- NOTE | 2023-10-06 20:45 | PC.NURSE ---
espinoza godinez placed on pt
[2023-10-06 20:56] LABS: Basophils Absolute Auto 0 /uL (0-100); Basophils Percent Auto 0.2 % (0-2); Eosinophils Absolute Auto 0 /uL (0-450); Eosinophils Percent Auto 0.1 % (2-4); Hematocrit 45.9 % (36-46); Hemoglobin 14.6 g/dL (12.0-16.0); Lymphocytes Absolute Auto 400 /uL (1100-4500); Lymphocytes Percent Auto 3.7 % (25-40); Mean Corpuscular HGB Conc 31.9 % (30-36); Mean Corpuscular Hemoglobin 35.1 PG (26-34); Monocytes Absolute Auto 1000 /uL (0-900); Monocytes Percent Auto 8.6 % (3-14); Neutrophils Absolute Auto 9700 /uL (1500-7000); Neutrophils Percent Auto 87.4 % (50-75); Platelet Count 209 X10^3/uL (150-400); Red Blood Cell Count 4.17 X10^6/uL (4.0-5.2); Red Cell Distribution Width 18.7 % (11.6-14.8); White Blood Cell Count 11.1 X10^3/uL (4.5-11.0)
--- NOTE | 2023-10-06 21:00 | PC.NURSE ---
temp sensing bermudez placed
[2023-10-06 21:02] LABS: Alanine Aminotransferase 90 IU/L (<35); Albumin 3.6 g/dL (3.5-5.0); Alkaline Phosphatase 231 U/L (38-126); Aspartate Aminotransferase 105 IU/L (14-36); Bilirubin Total 3.8 mg/dL (0.2-1.3); Blood Urea Nitrogen 100 mg/dL (7-17); Calcium 9.1 mg/dL (8.4-10.2); Carbon Dioxide 14 mmol/L (22-32); Chloride 103 mmol/L (98-107); Globulin 3.6 g/dL (1.7-4.1); Glucose 122 mg/dL (80-110); Lipase 384 U/L (23-300); Magnesium 2.8 mg/dL (1.6-2.3); Potassium 5.3 mmol/L (3.4-5.1); Sodium 135 mmol/L (137-145); Total Protein 7.2 g/dL (6.3-8.2)
[2023-10-06 21:11] LABS: Appearance Urine UA CLEAR; Bilirubin Urine UA 1+ (NEGATIVE); Color Urine UA YELLOW; Glucose Urine UA NEGATIVE (Negative); Ketones Urine UA NEGATIVE (NEGATIVE); Leukocyte Esterase Urine UA NEGATIVE (NEGATIVE); Nitrite Urine UA NEGATIVE (Negative); Occult Blood Urine UA NEGATIVE (Negative); Protein Urine UA 2+ (Negative); Specific Gravity Urine UA 1.025 (1.000-1.035); Urobilinogen Urine UA 0.2 E.U./dL (0.2)
[2023-10-06 21:16] LABS: Add Manual Diff / Slide Review SLIDE REVIEW
[2023-10-06 21:18] LABS: pH Urine UA 5.5 (4.5-8.0)
[2023-10-06 21:19] LABS: Bacteria Urine None Seen; Culture Indicated Urine Cult Not Indicated; Ictotest Urine Negative (Negative); Mucus Urine 1+ (Negative); RBC Urine None Seen (0-5/HPF); Squamous Epithelial Cell Urine 1-5 /HPF (0-5/HPF); Urine Volume 10mL (spun); WBC Urine None Seen (0-5/HPF)
[2023-10-06 21:20] LABS: Amorphous Sediment Urine 1+
[2023-10-06 21:21] LABS: Burr Cells 2+
[2023-10-06 21:22] LABS: Anisocytosis 1+; Macrocytosis 2+
[2023-10-06 21:23] LABS: Acanthocytes 1+; Target Cells 1+
--- NOTE | 2023-10-06 21:30 | DI.RAD.S_ITS ---
PROCEDURE: XR CHEST 1V INDICATIONS: check line placement TECHNIQUE: One view of the chest was acquired. COMPARISON: [facility], CR, XR CHEST 1V, 10/06/2023, 20:20. FINDINGS: Surgical changes and devices: Right central venous catheter with tip near the cavoatrial junction Lungs and pleura: Stable left pleural effusion and left pulmonary opacities. Mediastinum: Mediastinal contours appear normal. Heart size is enlarged. Bones and chest wall: No suspicious bony lesions. Overlying soft tissues appear unremarkable. IMPRESSION: Right central venous catheter with tip near the cavoatrial junction. Dictated by: Enrique Turner M.D. on 10/06/2023 at 21:50 Approved by: Enrique Turner M.D. on 10/06/2023 at 21:51
[2023-10-06 22:03] LABS: Ammonia (NH3) 11 umol/L (9-30)
[2023-10-06] MEDS: CEFEPIME 2 GM in SODIUM CHLORIDE 0.9% 100 ML IV (22:09)
[2023-10-06 22:13] LABS: Estimated Glomerular Filt Rate 19 mL/min (>60)
[2023-10-06 22:16] LABS: HEMOLYSIS < 15 (0-50)
[2023-10-06 22:26] LABS: Troponin I 0.029 ng/mL (0.01-0.034)
[2023-10-06 22:28] LABS: PTT Partial Thromboplastin Tim 51 SECONDS (25.1-36.5)
[2023-10-06 22:31] LABS: Procalcitonin 1.42 ng/mL (<0.5)
[2023-10-06 22:37] LABS: NT-proBNP (BNP-Adult 18+) 11600 pg/mL (<450)
[2023-10-06 22:42] LABS: Thyroid Stimulating Hormone 3.63 uIU/mL (0.47-4.68)
[2023-10-06 22:45] LABS: Prothrombin Time 76.6 SECONDS (9.4-12.5)
[2023-10-06 22:47] LABS: INR 6.5 (0.9-1.3)
[2023-10-06] MEDS: VANCOMYCIN 1,000 MG/200 ML PIGGYBACK 200 MG IV (22:55)
--- NOTE | 2023-10-06 23:06 | DI.CT.S_ITS ---
PROCEDURE: CT HEAD/BRAIN WO CON INDICATIONS: altered mental status, TECHNIQUE: Noncontrast 4.5 mm thick angled axial sections acquired from the foramen magnum to the vertex, with coronal and sagittal reformats. For radiation dose reduction, the following was used: automated exposure control, adjustment of mA and/or kV according to patient size. COMPARISON: None. FINDINGS: Image quality: Diagnostic. CSF spaces: Basal cisterns are patent. No extra-axial fluid collections. The ventricles are symmetric in size and shape. Brain: No intracranial bleeds or masses. There is cerebral volume loss for age, with resultant ventricular and sulcal prominence. There are periventricular and deep white matter chronic small vessel ischemic changes. There is intracranial internal carotid artery atherosclerosis. Skull and face: Calvarium and visualized facial bones appear intact, without suspicious lesions. Sinuses: Visualized sinuses and mastoids are clear. IMPRESSION: No acute intracranial pathology. Dictated by: Enrique Turner M.D. on 10/06/2023 at 23:32 Approved by: Enrique Turner M.D. on 10/06/2023 at 23:33
[2023-10-06] MEDS: SODIUM CHLORIDE 0.9% 1,000 ML 150 ML IV (23:27)
[2023-10-06 23:29] LABS: pH ABG 7.32 (7.35-7.45)
[2023-10-06 23:30] LABS: Blood Gas Collection Site Left Radial; Fractionated Inspired Oxygen 20; HCO3 ABG 18 mmol/L (23-27); Oxygen Saturation ABG 95 % (95-100); PCO2 ABG 35.1 mmHg (35-45); PO2 ABG 79 mmHg (80-100); TCO2 ABG 19 mmol/L (23-27)
[2023-10-06] MEDS: ACETAMINOPHEN IV 1,000 MG/100 ML VIAL 400 MG IV (23:30)
[2023-10-06 23:32] LABS: Allen Test for ABG Passed? Yes, Passed
[2023-10-06] MEDS: NOREPINEPHRINE BITARTRATE/D5W 4 MG/250 ML PLAST..BAG 20.412 MG IV (23:42)
[2023-10-06 23:57] LABS: Lactate (Lactic Acid) 2.9 mmol/L (0.7-2.1)
[2023-10-07] VITALS (38 sets, daily range): BP systolic 66–102; BP diastolic 39–62; PULSE 69–117; RESP 5–35; TEMP 36.1–36.9; O2SAT 90–99; BMI 20.5
[2023-10-07] MEDS: HYDROMORPHONE 0.5 MG INJ IV (00:01)
--- NOTE | 2023-10-07 00:08 | PC.NURSE ---
pt continues to just yell help me and ow but does not respond when asked questions, pt pulling at gown moving arms without difficulty
--- NOTE | 2023-10-07 00:36 | PC.NURSE ---
pt no longer hollering after pain med given lying still on stretcher, resp unlabored
--- NOTE | 2023-10-07 01:13 | PC.NURSE ---
pt with agonal breathing noted, Dr Jaeger in room to evaluate pt
--- NOTE | 2023-10-07 01:17 | PC.NURSE ---
Hi-alec O2 started per RT
[2023-10-07 01:18] LABS: Reflexed Lactate in 2 Hours Y
--- NOTE | 2023-10-07 01:34 | PC.NURSE ---
infusions stopped per verbal order Dr Jaeger, pt placed on comfort measures
[2023-10-07] MEDS: MORPHINE 2 MG/ML INJ 1 MG IV (08:11)
--- NOTE | 2023-10-07 08:18 | PC.NURSE ---
arrived to bedside. Pt grimacing, reaching and calling out and requested pain medication. Pastoral services offered.
[2023-10-07] MEDS: SCOPOLAMINE 1 PATCH TOP (11:23)
--- NOTE | 2023-10-07 11:34 | P.HP_ITS ---
History of Present Illness History of Present Illness Date Patient Seen: 10/07/23 Time Patient Seen: 11:34 Chief complaint: wounds on legs Narrative: This is an 78 year old female with PMH of chronic afib on xarelto, HFpEF, mitral insufficiency, breast cancer w/ prior mastectomy, recently admitted at [facility] in [place] from 09/14 to 09/28/23 for heart failure, cirrhosis, septic shock without obvious source other than cellulitis and discharged to [facility] on 09/27. Patient was doing well at rehab but presented today with altered mental status. In the ER, patient's labs appear to be much worse with Cr of 2.5 (baseline ? 1.3), Tbili 3.8, AST ALT of 105/90 (outpatient 57 for each), INR 6.5, WBC 11.1, proBNP 38900, Procalcitonin 1.42. She received IV fluids, pressor support, cefepime. After spouse arrived, patient still remained in septic shock, elected to proceed with comfort care meaures with her passing appearing imminent. [facility] Medical History History of alcohol use disorder Atrial fibrillation Congestive heart failure Social History household members: spouse Smoking Status: Never smoker Meds Home Medications and Allergies Home Medications Medication Instructions Recorded Confirmed Type Multivitamin Women 50 Plus 1 tab DAILY 10/06/23 10/06/23 History Ocuvite Adult 50 Plus 1 tab DAILY 10/06/23 10/06/23 History ascorbic acid (vitamin C) 1,000 mg DAILY 10/06/23 10/06/23 History cetirizine 10 mg DAILY 10/06/23 10/06/23 History magnesium oxide 400 mg DAILY 10/06/23 10/06/23 History melatonin 10 mg BEDTIME 10/06/23 10/06/23 History metoprolol succinate 25 mg mg PO DAILY 10/06/23 History tablet,extended release 24 hr rivaroxaban 15 mg BEDTIME 10/06/23 10/06/23 History thiamine mononitrate (vit B1) 100 mg DAILY 10/06/23 10/06/23 History valacyclovir 500 mg tablet 500 mg PO BID 10/06/23 10/06/23 History Allergies Allergy/AdvReac Type Severity Reaction Status Date / Time No Known Drug Allergies Allergy Verified 10/06/23 20:20 Review of Systems Review of Systems Narrative: Unable to perform with patient's current mental status Exam Vital Signs (past 8 hours): - 10/07/23 03:40 10/07/23 03:40 10/07/23 03:50 Temperature 97.9 F 97.9 F Pulse Rate 89 92 H Respiratory Rate 7 L 6 L Blood Pressure 74/50 L Pulse Oximetry Oxygen Delivery Method Oxygen Flow Rate 10/07/23 03:50 10/07/23 04:00 10/07/23 04:00 Temperature 97.9 F Pulse Rate 92 H Respiratory Rate 8 L Blood Pressure 70/48 L 72/52 L Pulse Oximetry Oxygen Delivery Method Oxygen Flow Rate 10/07/23 04:10 10/07/23 04:10 10/07/23 04:20 Temperature 97.9 F 97.9 F Pulse Rate 84 95 H Respiratory Rate 6 L 6 L Blood Pressure 72/50 L Pulse Oximetry Oxygen Delivery Method Oxygen Flow Rate 10/07/23 04:20 10/07/23 04:30 10/07/23 04:30 Temperature 97.7 F Pulse Rate 90 Respiratory Rate 8 L Blood Pressure 70/39 L 73/51 L Pulse Oximetry Oxygen Delivery Method Oxygen Flow Rate 10/07/23 04:40 10/07/23 04:40 10/07/23 04:50 Temperature 97.7 F Pulse Rate 90 Respiratory Rate 7 L Blood Pressure 71/53 L 66/51 L Pulse Oximetry Oxygen Delivery Method Oxygen Flow Rate 10/07/23 04:50 10/07/23 05:00 10/07/23 05:12 Temperature 97.7 F 97.7 F Pulse Rate 91 H 96 H Respiratory Rate 5 L 6 L Blood Pressure 75/50 L Pulse Oximetry Oxygen Delivery Method High Flow Nasal Cannula Oxygen Flow Rate 45 10/07/23 05:12 10/07/23 05:30 10/07/23 05:30 Temperature 97.7 F 97.5 F L Pulse Rate 95 H 92 H Respiratory Rate 7 L 8 L Blood Pressure 73/41 L Pulse Oximetry Oxygen Delivery Method Oxygen Flow Rate 10/07/23 05:55 10/07/23 05:55 10/07/23 06:00 Temperature 97.5 F L Pulse Rate 99 H Respiratory Rate 5 L Blood Pressure 71/49 L 69/52 L Pulse Oximetry Oxygen Delivery Method Oxygen Flow Rate 10/07/23 06:00 10/07/23 10:16 Temperature 97.5 F L 97 F L Pulse Rate 97 H 69 Respiratory Rate 7 L 12 Blood Pressure 75/40 L Pulse Oximetry 98 Oxygen Delivery Method Room Air Oxygen Flow Rate Oxygen Delivery Method Room Air Oxygen Flow Rate 45 Narrative Exam Narrative: elderly female, agonal breathing, comatose and unresponsive. Objective ECG Impression: none performed Labs 10/06/23 20:37 10/06/23 20:37 Labs: Laboratory Results - last 24 hr 10/06/23 10/06/23 10/06/23 20:37 21:00 21:35 WBC 11.1 H RBC 4.17 Hgb 14.6 Hct 45.9 MCV 110.0 H MCH 35.1 H MCHC 31.9 RDW 18.7 H Plt Count 209 Neut % (Auto) 87.4 H Lymph % (Auto) 3.7 L [place] % (Auto) 8.6 Eos % (Auto) 0.1 L Baso % (Auto) 0.2 Neut # (Auto) 9700 H Lymph # (Auto) 400 L [place] # (Auto) 1000 H Eos # (Auto) 0 Baso # (Auto) 0 RBC Morphology See below Anisocytosis 1+ H Macrocytosis 2+ H Target Cells 1+ H [place] Cells 2+ H Acanthocytes (Spur) 1+ H PT 76.6 H INR 6.5 H* APTT 51 H ABG Sample Site ABG pH ABG pCO2 ABG pO2 ABG HCO3 ABG Total CO2 ABG O2 Saturation ABG Base Excess FiO2 Sodium 135 L Potassium 5.3 H Chloride 103 Carbon Dioxide 14 L BUN 100 H Creatinine 2.50 H Estimated GFR 19 L BUN/Creatinine Ratio 40.0 H Glucose 122 H Lactate 2.0 Calcium 9.1 Magnesium 2.8 H Total Bilirubin 3.8 H AST 105 H ALT 90 H Alkaline Phosphatase 231 H Ammonia 11 Troponin I 0.029 NT-Pro-B Natriuret Pep 55614 H Total Protein 7.2 Albumin 3.6 Globulin 3.6 Albumin/Globulin Ratio 1.0 Lipase 384 H Procalcitonin 1.42 H TSH 3.63 Urine Color Yellow Urine Appearance Clear Urine pH 5.5 Ur Specific [place] 1.025 Urine Protein 2+ H Urine Glucose (UA) Negative Urine Ketones Negative Urine Occult Blood Negative Urine Nitrate Negative Urine Bilirubin 1+ H Ur Bilirubin Confirm Negative Urine Urobilinogen 0.2 Ur Leukocyte Esterase Negative Urine RBC None seen Urine WBC None seen Ur Squamous Epith Cells 1-5 /hpf Amorphous Sediment 1+ Urine Bacteria None seen Urine Mucus 1+ H Ur Culture Indicated? Cult not indicated Vol Urine Centrifuged 10ml (spun) Blood Type A Positive Antibody Screen Negative 10/06/23 10/06/23 22:17 23:40 WBC RBC Hgb Hct MCV MCH MCHC RDW Plt Count Neut % (Auto) Lymph % (Auto) [place] % (Auto) Eos % (Auto) Baso % (Auto) Neut # (Auto) Lymph # (Auto) [place] # (Auto) Eos # (Auto) Baso # (Auto) RBC Morphology Anisocytosis Macrocytosis Target Cells [place] Cells Acanthocytes (Spur) PT INR APTT ABG Sample Site Left radial ABG pH 7.32 L ABG pCO2 35.1 ABG pO2 79 L ABG HCO3 18 L ABG Total CO2 19 L ABG O2 Saturation 95 ABG Base Excess -8.0 L FiO2 20 Sodium Potassium Chloride Carbon Dioxide BUN Creatinine Estimated GFR BUN/Creatinine Ratio Glucose Lactate 2.9 H Calcium Magnesium Total Bilirubin AST ALT Alkaline Phosphatase Ammonia Troponin I NT-Pro-B Natriuret Pep Total Protein Albumin Globulin Albumin/Globulin Ratio Lipase Procalcitonin TSH Urine Color Urine Appearance Urine pH Ur Specific [place] Urine Protein Urine Glucose (UA) Urine Ketones Urine Occult Blood Urine Nitrate Urine Bilirubin Ur Bilirubin Confirm Urine Urobilinogen Ur Leukocyte Esterase Urine RBC Urine WBC Ur Squamous Epith Cells Amorphous Sediment Urine Bacteria Urine Mucus Ur Culture Indicated? Vol Urine Centrifuged Blood Type Antibody Screen Assessment & Plan Assessment & Plan narrative: 1. Septic shock with acute metabolic encephalopathy, MERLIN on CKD, Elevated bilirubin, hypotension, acute respiratory failure with hypoxia secondary to community acquired bacterial pneumonia 2. Supratherapeutic INR 3. Probable acute on chronic diastolic heart failure Chronic conditions #chronic atrial fibrillation with chronic anticoagulation #mitral insufficiency #breast cancer with prior mastectomy Highly suspect septic shock, but also possible cardiogenic shock. I would have performed EKG in this patient to rule out acute [place], and further evaluation would have also included RUQ ultrasound to rule out cholangitis as the possible source of her infection. However after goals of care discussions with spouse elected for comfort measures only. Patient's passing appears imminent. Patient's son coming up from [place], is at bedside. She is anticipated to in the next 24 hours. Will keep comfortable with morphine, ativan, and scopalamine for secretions. I have stopped IV fluids and antibiotics, and unless patient's mental status improves will not resume her home medications. Code: DNR, surrogate is patient's spouse No DVT ppx with comfort goals. I have utilized all available immediate resources to obtain, update, or review the patient's current medications. Dispo: anticipate Additional history obtained via discussions with the ER provider and spouse. These discussions contributed to the creation of the above assessment and plan. I have reviewed patient's presenting documentation, labs, and imaging personally.
[2023-10-07] MEDS: MORPHINE 10 MG/0.5 ML ORAL SYRINGE SL (11:56)
[2023-10-07] MEDS: LORazepam 2 MG/ML INJ 1 MG IV (13:38)
--- NOTE | 2023-10-07 23:55 | P.DN_ITS ---
Discharge Summary History of Illness Narrative: This is an 78 year old female with PMH of chronic afib on xarelto, HFpEF, mitral insufficiency, breast cancer w/ prior mastectomy, recently admitted at [facility] in [place] from 09/14 to 09/28/23 for heart failure, cirrhosis, septic shock without obvious source other than cellulitis and discharged to [facility] on 09/27. Patient was doing well at rehab but presented today with altered mental status. In the ER, patient's labs appear to be much worse with Cr of 2.5 (baseline ? 1.3), Tbili 3.8, AST ALT of 105/90 (outpatient 57 for each), INR 6.5, WBC 11.1, proBNP 96216, Procalcitonin 1.42. She received IV fluids, pressor support, cefepime. After spouse arrived, patient still remained in septic shock, elected to proceed with comfort care meaures with her passing appearing imminent. Hospital Course Date of Admission: 10/07/23 09:41 Date of : 10/07/23 Primary care provider: Marc Hancock MD Consults: 10/07/23 10:57 Consult to Discharge Planning Routine Comment: Consult to Hospice Referral Urgent Comment: Discharge Diagnosis: 1. Septic shock with acute metabolic encephalopathy, MERLIN on CKD, Elevated bilirubin, hypotension, acute respiratory failure with hypoxia secondary to community acquired bacterial pneumonia 2. Supratherapeutic INR 3. Probable acute on chronic diastolic heart failure Chronic conditions #chronic atrial fibrillation with chronic anticoagulation #mitral insufficiency #breast cancer with prior mastectomy Hospital Course: Highly suspect septic shock, but also possible cardiogenic shock. I would have performed EKG in this patient to rule out acute [place], and further evaluation would have also included RUQ ultrasound to rule out cholangitis as the possible source of her infection. However after goals of care discussions with spouse elected for comfort measures only. Patient's son coming up from [place], is at bedside. Kept comfortable with morphine, ativan, and scopalamine for secretions. at 2340 on 10/06. Objective Labs 10/06/23 20:37 10/06/23 20:37
--- NOTE | 2023-10-08 | PC.NURSE ---
Sandy Dick RN and this nurse confirmed time of . Pt at 2340. Notified attending. and son at bedside.
== END 2023-10-08 03:15 | disposition expired | DRG 871 ==
LOC: ED 10-07 09:38 → AC 10-07 09:42
PROVIDERS: Emergency Medicine; Admitting Provider Internal Medicine; Emergency Provider Emergency Medicine; Family Provider Family Medicine Geriatric Medicine; PCP Family Medicine Geriatric Medicine; Referring Provider Emergency Medicine; Visit Provider Internal Medicine
DX: A41.9 Sepsis, unspecified organism (principal); G93.41 Metabolic encephalopathy; R65.21 Severe sepsis with septic shock; J18.9 Pneumonia, unspecified organism; J96.01 Acute respiratory failure with hypoxia; I50.33 Acute on chronic diastolic (congestive) heart failure; I48.20 Chronic atrial fibrillation, unspecified; R79.1 Abnormal coagulation profile; R57.0 Cardiogenic shock; I34.0 Nonrheumatic mitral (valve) insufficiency; Z51.5 Encounter for palliative care; Z66 Do not resuscitate; Z79.01 Long term (current) use of anticoagulants
CPT/HCPCS: 36600; 70450; 71045; 80053; 81001; 82140; 82805; 83605; 83690; 83735; 83880; 84145; 84443; 84484; 85025; 85610; 85730; 86850; 86900; 86901; 87040; 93925; 96365; 96367; 96368; 99285; 99291; 99292; J0136; J0692; J1170; J2060; J2270